=== PATIENT | male | born 1985 | race Caucasian/White ===

== ENCOUNTER 2016-07-18 13:44 | Emergency (ER) | payer MEDICAID ==
[2016-07-18] MEDS ORDERED: ASPIRIN CHEW 81 MG TABLET ONE (14:39)
[2016-07-18] MEDS ORDERED: ASPIRIN CHEW 81 MG TABLET PO STA (14:39)
--- NOTE | 2016-07-18 14:43 | ED Physician Documentation ---
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 Today at about 1230 he became anxious because of some deadlines on homework he was doing and he started to feel a dull pain across his chest and both shoulders with pain radiating to all 4 extremities and tingling in all 4 extremities. This is mostly gone now, but he still has some left arm pain. He was sweaty with it but there was no shortness of breath or nausea. Review of Systems Ten Systems: 10 systems reviewed and negative Constitutional: reports: Reviewed and negative Ears: denies: Loss of hearing, Ear pain Nose: denies: Rhinorrhea / runny nose, Congestion Throat: denies: Dental pain / toothache, Sore throat Cardiac: denies: Pedal edema, Calf pain PD PAST MEDICAL HISTORY - Past Medical History Cardiovascular: MA - Past Surgical History Past Surgical History: Yes Cardiovascular: Cardiac catheterization - Present Medications Home Medications: Ambulatory Orders Medication Instructions Recorded Confirmed Aspirin 1 tab DAILY 07/18/16 07/18/16 Sertraline HCl [Zoloft] 0 mg DAILY 07/18/16 07/18/16 [id number] [Cardizem] 180 mg DAILY 07/18/16 07/18/16 - Allergies Allergies/Adverse Reactions: Allergies Allergy/AdvReac Type Severity Reaction Status Date / Time No Known Drug Allergies Allergy Verified 07/18/16 13:54 - Social History Does the pt smoke?: No Smoking Status: Former smoker Does the pt drink ETOH?: No Does the pt have substance abuse?: No - Family History Family history: reports: Other (no Early-onset coronary disease) - Immunizations Immunizations are current?: Yes PD ED PE NORMAL - Vitals Vital signs reviewed: Yes - General General: Alert and oriented X 3, No acute distress - HEENT HEENT: PERRL, EOMI - Neck Neck: Supple, no meningeal sign, No bony TTP - Cardiac Cardiac: RRR, No murmur - Respiratory Respiratory: No respiratory distress, Clear bilaterally - Abdomen Abdomen: Soft, Non tender - Derm Derm: Normal color, Warm and dry - Extremities Extremities: No edema, No calf tenderness / cord - Neuro Neuro: Alert and oriented X 3, Normal speech - Psych Psych: Normal mood, Normal affect Results - Vitals Vitals: Vital Signs - 24 hr 07/18/16 07/18/16 07/18/16 13:51 13:56 14:47 Temperature 37.0 C Heart Rate 54 L 53 L Respiratory 20 18 Rate Blood Pressure 138/90 H 117/73 Blood Pressure 125/89 H [Left] Blood Pressure 127/82 H [Right] O2 Saturation 99 100 07/18/16 07/18/16 07/18/16 15:46 16:14 17:04 Temperature Heart Rate 46 L 44 L 43 L Respiratory 18 18 18 Rate Blood Pressure 105/53 L 113/88 H 101/55 L Blood Pressure [Left] Blood Pressure [Right] O2 Saturation 97 96 Oxygen O2 Source Room air - EKG (time done) 1354 Rate: Rate (enter#) (57) Rhythm: NSR [place]: Normal Intervals: Normal [place] QRS: Normal Ischemia: Non specific changes (mild Twave inversion V4-5 and I/L). No: ST elevation c/w ischemia Compare to prior EKG: Old EKG unavailable Computer interpretation: Agree with computer - Labs Labs: Laboratory Tests 07/18/16 07/18/16 07/18/16 14:40 14:40 14:40 WBC 6.4 RBC 4.73 Hgb 14.4 Hct 41.2 L MCV 87.2 MCH 30.4 MCHC 34.9 RDW 13.3 Plt Count 143 MPV 9.6 Neut # 3.8 Lymph # 1.8 [place] # 0.5 Eos # 0.3 Baso # 0.0 Absolute Nucleated RBC 0.00 Nucleated RBCs 0.0 Sodium 139 Potassium 3.9 Chloride 103 Carbon Dioxide 29 Anion Gap 7.0 BUN 17 Creatinine 0.8 Estimated GFR (MDRD) 115 Glucose 93 Calcium 9.3 Total Bilirubin 0.6 AST 22 ALT 32 Alkaline Phosphatase 50 Troponin I < 0.04 Total Protein 7.0 Albumin 4.6 Globulin 2.4 Albumin/Globulin Ratio 1.9 Lipase 27 07/18/16 16:35 WBC RBC Hgb Hct MCV MCH MCHC RDW Plt Count MPV Neut # Lymph # [place] # Eos # Baso # Absolute Nucleated RBC Nucleated RBCs Sodium Potassium Chloride Carbon Dioxide Anion Gap BUN Creatinine Estimated GFR (MDRD) Glucose Calcium Total Bilirubin AST ALT Alkaline Phosphatase Troponin I < 0.04 Total Protein Albumin Globulin Albumin/Globulin Ratio Lipase PD MEDICAL DECISION MAKING - ED course ED course: 30-year-old gentleman with history of MA, potentially related to friends metals , also a 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 He presents with improving atypical chest pain. EKG is not overtly ischemic that we don't have any priors. 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 We will at least get 2 troponins. Also a chest x-ray. EKG received from [facility] Twave inversion in V4-5 and I/L is old compared with 07/28/15 Records also received from [facility] in [facility], Had evidence of STEMI on EKG, cath report showing an LAD occlusion, likely embolic without other coronary disease., Ventriculogram demonstrated evidence of an anterior apical dyskinetic segment suggestive of aneurysm. It was felt that this constellation of findings was likely related to his Raynaud's syndrome. Departure - Departure Disposition: 01 Home, Self Care Clinical Impression: Chest pain Qualifiers: Chest pain type: unspecified Qualified Code(s): R07.9 - Chest pain, unspecified Condition: Good Record reviewed to determine appropriate education?: Yes Instructions: ED Chest Pain NonCardiac Comments: Call your doctor to arrange a follow up appointment. Make the next available appointment. In the interim return anytime if worse or if new symptoms develop.
[2016-07-18 14:49] LABS: BASOPHILS % (AUTO) 0.6 %; EOSINOPHILS # (AUTO) 0.3 10^3/uL (0.0-0.7); EOSINOPHILS % (AUTO) 4.7 %; HCT - HEMATOCRIT 41.2 % (42.0-52.0); HGB - HEMOGLOBIN 14.4 g/dL (14.0-18.0); LYMPHOCYTES # (AUTO) 1.8 10^3/uL (1.5-3.5); MEAN CORPUSCULAR HEMOGLOBIN 30.4 pg (27.0-31.0); MEAN CORPUSCULAR HGB CONC 34.9 g/dL (32.0-36.0); MEAN CORPUSCULAR VOLUME 87.2 fL (80.0-94.0); MEAN PLATELET VOLUME 9.6 fL (7.4-11.4); MONOCYTES # (AUTO) 0.5 10^3/uL (0.0-1.0); MONOCYTES % (AUTO) 8.2 %; NEUTROPHILS # (AUTO) 3.8 10^3/uL (1.5-6.6); NEUTROPHILS % (AUTO) 58.5 %; RED BLOOD COUNT 4.73 10^6/uL (4.70-6.10); RED CELL DISTRIBUTION WIDTH 13.3 % (12.0-15.0); UNCORRECTED WHITE BLOOD COUNT 6.4 x10^3/uL; WHITE BLOOD COUNT 6.4 x10^3/uL (4.8-10.8)
[2016-07-18 15:01] LABS: ALBUMIN/GLOBULIN RATIO 1.9 (1.0-2.2); BILIRUBIN,TOTAL 0.6 mg/dL (0.2-1.0); CALCIUM 9.3 mg/dL (8.5-10.3); CREATININE 0.8 mg/dL (0.6-1.2); POTASSIUM 3.9 mmol/L (3.5-5.0)
--- NOTE | 2016-07-18 16:23 | XRAY Preliminary Report ---
Exam: XR Chest 2 View PA/LAT IMPRESSION: 1. No acute cardiopulmonary disease seen. Hyperexpanded lungs with flattened diaphragm, unchanged. [facility] SITE ID: [id number]
--- NOTE | 2016-07-18 16:26 | XRAY Report ---
EXAM: CHEST RADIOGRAPHY EXAM DATE: 07/18/2016 03:47 PM. CLINICAL HISTORY: Chest pain. History of heart attack 18 months ago. Pericardial window procedure 2 weeks ago. COMPARISON: Chest 09/17/2010. TECHNIQUE: 2 views. FINDINGS: Lungs/Pleura: No focal opacities evident. No pleural effusion. No pneumothorax. Hyperexpanded lungs w ith flattened diaphragm, unchanged. Mediastinum: Heart and mediastinal contours are unremarkable. Other: None. IMPRESSION: 1. No acute cardiopulmonary disease seen. Hyperexpanded lungs with flattened diaphragm, unchanged. [facility] Referring Provider Line: [phone] SITE ID: [id number]
[2016-07-18 17:05] VITALS: BP 101/55
== END 2016-07-18 17:25 | disposition home or self-care (01) ==
LOC: ED 13:44
DX: R07.9 Chest pain, unspecified (principal); I25.2 Old myocardial infarction; Z79.82 Long term (current) use of aspirin; Z87.891 Personal history of nicotine dependence
CPT/HCPCS: 36415; 71020; 80053; 83690; 84484; 85025; 93005; 93010; 99284; A9270